=== PATIENT | female | born 1940 | race Caucasian/White ===

== ENCOUNTER 2016-06-07 04:48 | Inpatient (IN) ==
[2016-06-02 14:17] LABS: Appearance,Urine HAZY; Bacteria,Urine 0 /hpf (0); Bilirubin,Urine NEG (NEG); Color,Urine YELLOW; Glucose,Urine (UA) NEGATIVE (NEG); Leukocyte Esterase,Urine 25 /uL (NEG); Nitrate,Urine NEG (NEG); Protein,Urine NEG (NEG); Specific Gravity,Urine 1.009 (1.000-1.035); Urine Blood NEG mg/dL (<0.03); Urine RBC 1 /hpf (0-1); Urine Squamous Epithelial Cell 10 /hpf (0-4); Urine Transitional Epi Cells < 1 /hpf (0-2); Urine WBC 3 /hpf (0-4); Urobilinogen,Urine NEG (NEG)
[2016-06-02 16:05] LABS: Basophils # (Auto) 0 K/mcL (0.0-0.3); Basophils % (Auto) 0.6 % (0.0-2.0); Blood Urea Nitrogen 18 mg/dl (8-23); Eosinophils # (Auto) 0.3 K/mcL (0.0-0.7); Granulocytes % (Auto) 51.9 % (38.0-78.0); Lymphocytes # (Auto) 2.1 K/mcL (1.5-4.8); Lymphocytes % (Auto) 32.2 % (15.5-49.0); Mean Corpuscular HGB Conc 32.1 g/dL (31.0-36.0); Mean Corpuscular Hemoglobin 27.6 pg (26.0-34.0); Monocytes # (Auto) 0.7 K/mcL (0.1-0.9); Monocytes % (Auto) 11.3 % (1.0-9.0); Platelet Count 238 K/mcL (140-440); RBC 5.08 M/mcL (4.00-5.20); Red Cell Distribution Width 14.8 % (11.5-14.5)
[2016-06-07] MEDS ORDERED: ceFAZolin 1 GM VIAL IV SCH (05:00)
[2016-06-07] MEDS ORDERED: ACETAMINOPHEN 500 MG TABLET PO SCH (05:00)
[2016-06-07] MEDS ORDERED: oxyCODONE 10 MG TAB.ER.12H PO SCH (05:00)
[2016-06-07] MEDS ORDERED: CELECOXIB 200 MG CAPSULE PO SCH (05:00)
[2016-06-07] MEDS ORDERED: PREGABALIN 150 MG CAPSULE PO SCH (05:00)
[2016-06-07] MEDS ORDERED: KETOROLAC 30 MG, ROPIVACAINE HCL/PF 49.5 ML, EPINEPHrine 0.5 MG, 0.9 % SODIUM CHLORIDE ... IJ SCH (06:30)
[2016-06-07] MEDS ORDERED: ROPIVACAINE HCL/PF 30 ML VIAL IJ ONE (07:40)
[2016-06-07] MEDS ORDERED: ONDANSETRON 4 MG/2 ML VIAL IV ONE (07:40)
[2016-06-07] MEDS ORDERED: PROPOFOL 200 MG/20 ML VIAL IV ONE (07:40)
[2016-06-07] MEDS ORDERED: GLYCOPYRROLATE 0.2 MG/ML VIAL IV ONE (07:40)
[2016-06-07] MEDS ORDERED: KETAMINE 100 MG/ML ML IV ONE (07:40)
[2016-06-07] MEDS ORDERED: TRANEXAMIC ACID 1,000 MG/10 ML VIAL IV ONE (07:40)
[2016-06-07] MEDS ORDERED: MIDAZOLAM 5 MG/5 ML VIAL IV ONE (07:40)
[2016-06-07] MEDS ORDERED: NALBUPHINE 10 MG/ML AMPUL IV ONE (07:40)
[2016-06-07] MEDS ORDERED: LIDOCAINE HCL/PF 100 MG/5 ML SYRINGE IV ONE (07:40)
[2016-06-07] MEDS ORDERED: HYDROmorphone 2 MG/ML SYRINGE IV ONE (07:40)
[2016-06-07] MEDS ORDERED: GENTAMICIN SULFATE 800 MG/20 ML VIAL IR ONE (08:18)
[2016-06-07] MEDS ORDERED: LABETALOL HCL 20 MG/4 ML SYRINGE IV PRN (08:28)
[2016-06-07] MEDS ORDERED: fentaNYL 100 MCG/2 ML VIAL IV PRN (08:28)
[2016-06-07] MEDS ORDERED: MEPERIDINE 25 MG/ML SYRINGE IV PRN (08:28)
[2016-06-07] MEDS ORDERED: BENZOCAINE/MENTHOL 1 LOZENGE PO PRN ×2 (08:28→10:29)
[2016-06-07] MEDS ORDERED: IPRATROPIUM/ALBUTEROL 3 ML AMPUL.NEB NEB PRN (08:28)
[2016-06-07] MEDS ORDERED: METHOCARBAMOL 1,000 MG/10 ML VIAL IV PRN (08:28)
[2016-06-07] MEDS ORDERED: HYDROmorphone 2 MG/ML SYRINGE IV PRN ×2 (08:28→10:29)
[2016-06-07] MEDS ORDERED: ONDANSETRON 4 MG/2 ML VIAL IV PRN ×2 (08:28→10:29)
[2016-06-07] MEDS ORDERED: LACTATED RINGERS 1,000 ML IV SCH (08:30)
[2016-06-07] MEDS ORDERED: TRANEXAMIC ACID 1,000 MG/10 ML VIAL IV SCH (08:52)
--- NOTE | 2016-06-07 08:52 | Brief Operative Note ---
Date of procedure: 06/07/16 Pre-op diagnosis: left knee djd severe Post-op diagnosis: same Procedure: left tka Grafts/Implants: Yes Anesthesia: GETA Findings: none Complications Description: 06/07/16 08:51 none Surgeon: Bill Hernandez Inorganic Chemical Technician: Ajay Ordaz Estimated blood loss (cc): 15 Tourniquet Time (Minutes): 43 Specimens Removed/Pathology: none sent Condition: stable Disposition: PACU
--- NOTE | 2016-06-07 09:47 | XRay Report ---
CLINICAL INFORMATION: Postsurgical follow-up TECHNIQUE: AP and lateral portable left knee COMPARISON: None. FINDINGS: Status post left total knee arthroplasty. Femoral and tibial complements are in anatomic positions. There is postsurgical soft tissue and intra-articular gas IMPRESSION: Previous left total knee arthroplasty. Interpreted and Authenticated by: Hi Gonzalez 06/07/16
--- NOTE | 2016-06-07 10:22 | Operative Note ---
DATE OF OPERATION: 06/07/2016 PREOPERATIVE DIAGNOSIS: Left knee degenerative arthritis. POSTOPERATIVE DIAGNOSIS: Left knee degenerative arthritis. PROCEDURE: Left total knee arthroplasty. SURGEON: Bill Hernandez MD. WIRE MESH GATE ASSEMBLER: Ajay Ordaz PA-C. ANESTHESIA: General LMA anesthesia. COMPLICATIONS: None. TOTAL TOURNIQUET TIME: 43 minutes. ESTIMATED BLOOD LOSS: 15 mL. IMPLANTS: A Layton implant with size 3 femur and size 3 tibial baseplate with a 9 mm poly. DESCRIPTION OF PROCEDURE: The patient was brought to the operating room and placed supine on the operating table. Once asleep, the patient had the left leg sterilely prepped and draped in the usual sterile fashion after confirming the operative site. Preop antibiotics had been given as well as tranexamic acid. Once done, we then made a midline incision, a mid vastus approach and exposed the joint. Once this had been done, we then placed intramedullary guide holes into the femur and the tibia, cut the distal femur at 5 degrees of valgus and 3 degrees external rotation. We then sized the knee to a size 3 component. Anterior and posterior chamfer cuts were made. Large spurs were removed from the back of the femur. The tibia was then measured from 9 mm below the medial compartment. Once this was done, we then cut with an intramedullary guide jose. This bony fragment was removed. Excess meniscus was removed. We irrigated thoroughly, and we then preserved the posterior cruciate ligament, trialed the size 3 tibial baseplate once it was punched into place with a 9 mm poly, size 3 femur. This seemed to fit very well. The patella tracked better once these components were placed. We then prepared the patella measuring 23 mm in total thickness. This was cut to 13 mm. We implanted a 36 mm patellar button and a small chamfer laterally on the patella. Once this was done, we cemented into place the above-mentioned sizes of components, all of which were well-fixed. Excess cement was removed. We irrigated thoroughly, deflated the tourniquet at 43 minutes and controlled bleeding. The knee was balanced throughout both flexion-extension and mid flexion. Soft tissue release was performed to balance the knee equally with 1 mm play both medially and laterally. The capsule was closed with #2 FiberWire and #1 double-armed Maxon running interlocking stitch. We then closed the skin with 2-0 Vicryl and an adhesive closure. The patient tolerated this well. Sterile bandage was applied. RBH:nathen Job ID: [id number] Doc ID: [id number] Bill Hernandez MD
[2016-06-07] MEDS ORDERED: BISACODYL 10 MG SUPP.RECT PR PRN (10:29)
[2016-06-07] MEDS ORDERED: POLYETHYLENE GLYCOL 3350 17 GM PACKET PO PRN (10:29)
[2016-06-07] MEDS ORDERED: FLEETS ADULT ENEMA PR PRN (10:29)
[2016-06-07] MEDS ORDERED: PROMETHAZINE 25 MG TABLET PO PRN (10:29)
[2016-06-07] MEDS ORDERED: ACETAMINOPHEN 325 MG TABLET PO PRN (10:29)
[2016-06-07] MEDS ORDERED: MAGNESIUM HYDROXIDE 30 ML ORAL.SUSP PO PRN (10:29)
[2016-06-07] MEDS: KETOROLAC 15 MG/ML VIAL IV SCH ×2 (11:01→17:40)
[2016-06-07] MEDS: DOCUSATE SODIUM 100 MG CAPSULE PO SCH ×2 (11:50→21:43)
[2016-06-07] MEDS: 0.45 % SODIUM CHLORIDE 1,000 ML IV SCH ×2 (13:45→16:36)
[2016-06-07] MEDS: HYDROcodone/APAP 10/325MG TABLET PO PRN (13:58)
[2016-06-07] MEDS: 0.9 % SODIUM CHLORIDE 10 ML SYRINGE IV SCH ×2 (14:00→21:47)
[2016-06-07] MEDS: ceFAZolin 1 GM VIAL IV SCH (15:26)
[2016-06-07] MEDS: amLODIPine 5 MG TABLET PO SCH (16:00)
[2016-06-07] MEDS: LISINOPRIL 20 MG TABLET PO SCH (16:01)
[2016-06-07] MEDS: METOPROLOL TARTRATE 50 MG TABLET PO SCH (16:01)
[2016-06-07] MEDS ORDERED: TEMAZEPAM 15 MG CAPSULE PO PRN (21:00)
[2016-06-07] MEDS ORDERED: SENNOSIDES 1 TABLET PO SCH (21:00)
[2016-06-07] MEDS: ASPIRIN 325 MG ENTERIC COATED TABLET PO SCH (21:43)
[2016-06-07] MEDS: ONDANSETRON ODT 4 MG TABLET SL PRN (21:44)
[2016-06-07] MEDS: oxyCODONE 10 MG TAB.ER.12H PO SCH (21:44)
[2016-06-08] MEDS: KETOROLAC 15 MG/ML VIAL IV SCH ×3 (00:51→12:33)
[2016-06-08] MEDS: ceFAZolin 1 GM VIAL IV SCH (00:51)
[2016-06-08] MEDS: 0.45 % SODIUM CHLORIDE 1,000 ML IV SCH ×3 (00:51→10:12)
[2016-06-08] MEDS: ONDANSETRON ODT 4 MG TABLET SL PRN ×2 (04:16→08:38)
[2016-06-08] MEDS: HYDROcodone/APAP 10/325MG TABLET PO PRN ×4 (04:17→12:34)
[2016-06-08] MEDS: amLODIPine 5 MG TABLET PO SCH (04:17)
[2016-06-08] MEDS: LISINOPRIL 20 MG TABLET PO SCH (04:18)
[2016-06-08] MEDS: METOPROLOL TARTRATE 50 MG TABLET PO SCH (04:18)
[2016-06-08] MEDS: 0.9 % SODIUM CHLORIDE 10 ML SYRINGE IV SCH ×2 (04:25→12:36)
[2016-06-08] MEDS ORDERED: LEVOTHYROXINE 100 MCG TABLET PO SCH (07:30)
--- NOTE | 2016-06-08 07:49 | Orthopedic Progress Note ---
Subjective Patient information: Note initiated : 06/08/16 at 7:48 am Service Date, if different from initiated Date: [] Patient: Caity Chung 76 y/o F admitted on 06/07/16 for Left Total Knee Arthroplasty. Chief Complaint: [Pt is stable this morning on post operative day 1 without any significant concerns or complaints. Patients vital signs have remained stable. Patients dressing is dry and exhibits a grossly intact neurovascular and neuromotor exam. Patients 10 point ROS is otherwise negative. ] Objective Vital signs: Vital Signs Temp Pulse Pulse Resp BP BP Pulse Ox 06/08/16 07:42 92 06/08/16 07:25 98.1 F 58 L 14 163/67 91 06/08/16 04:00 97.8 F 65 14 137/77 92 06/08/16 00:00 97.4 F L 62 14 147/65 92 06/07/16 20:00 97.6 F 70 14 135/81 92 06/07/16 14:00 50 L 10 L 95 06/07/16 12:45 68 14 122/74 94 06/07/16 11:45 68 14 150/81 94 06/07/16 11:15 97.5 F L 54 L 14 150/81 96 06/07/16 11:00 59 L 14 129/80 96 06/07/16 10:45 57 L 12 122/76 96 06/07/16 10:30 54 L 12 130/79 96 06/07/16 10:15 61 12 121/78 90 06/07/16 10:05 96 06/07/16 10:00 97.5 F L 62 12 116/76 94 06/07/16 09:44 69 13 131/90 96 06/07/16 09:40 97.5 F L 67 8 L 119/69 96 06/07/16 09:35 68 8 L 134/69 96 06/07/16 09:30 65 8 L 124/73 98 06/07/16 09:27 69 8 L 120/68 97 06/07/16 09:20 62 7 L 110/67 97 06/07/16 09:15 63 8 L 91/51 97 06/07/16 09:10 97.8 F 67 10 L 98/54 96 Intake and Output 06/07/16 06/08/16 06/08/16 21:59 05:59 13:59 Intake Total 2400 / 2400 525 / 525 Output Total 125 / 125 225 / 225 250 / 250 Balance 2275 / 2275 300 / 300 -250 / -250 Intake: IV 1000 / 1000 Sodium Chloride 0.45% 1, 1000 / 1000 000 ml @ 125 mls/hr IV . Q8H DAGOBERTO Rx#:[id number] Oral 1400 / 1400 525 / 525 Output: Void Amount 125 / 125 225 / 225 250 / 250 Other: Meal Lunch Percent of Meal Consumed 100% Weight 203 lb Intake & Output: Intake & Output 06/07/16 06/08/16 06/08/16 21:59 05:59 13:59 Intake Total 2400 / 2400 525 / 525 Output Total 125 / 125 225 / 225 250 / 250 Balance 2275 / 2275 300 / 300 -250 / -250 Weight 203 lb Intake: IV 1000 / 1000 Sodium Chloride 0.45% 1, 1000 / 1000 000 ml @ 125 mls/hr IV . Q8H DAGOBERTO Rx#:[id number] Oral 1400 / 1400 525 / 525 Output: Void Amount 125 / 125 225 / 225 250 / 250 Other: Meal Lunch Percent of Meal Consumed 100% Incision: Yes healing Incision clean and dry: Yes Dressing: Yes clean, Yes dry Weight bearing status: full Neurological exam IM: Yes motor sensory intact, Yes neurovascular intact Extremities exam IM: Yes Foot pink and warm, Yes neurovascular intact - Labs CBC & BMP: 06/08/16 05:00 06/02/16 11:00 Labs: Orthopedic Labs 06/02/16 11:00 PT 13.4 INR 1.0 APTT 34 06/08/16 06/02/16 05:00 11:00 Hgb 14.0 Hct 35.2 L 43.6 Assessment and Plan (1) Hx of total knee arthroplasty Patient has been educated regarding wound care and dressings, follow up recommendations, and medication use. We will f/u with the patient within 2-3 weeks for wound check. Status: Acute
--- NOTE | 2016-06-08 07:51 | Discharge Summary ---
Ortho Discharge - TKA - Patient Instructions Diet: Regular Diet Activity: activity as tolerated, weight bearing as tolerated Total Knee Protocol: For Total Knee: Start ROM DEANGELO with stationary bike or rocking chair. Work on gaining full extension of knee. Posterior dislocation precautions provided. Hip abductor strengthening and gait training instructions provided. Apply Cryocuff as instructed. Dressing Care: May shower in 2 days Patient Education: Total Knee Replacement (DC) Additional Instructions: [facility] [phone] APPOINTMENT: Take photo ID and insurance cards with you to physical therapy. Consider taking pain meds 45 min before physical therapy appointment. Wear comfortable clothes to physical therapy. Consider taking pain meds 45 min before physical therapy appointment. Your orders have been faxed to them. - Problem Maintenance (1) Hx of total knee arthroplasty Status: Acute - Follow Up Plan Follow Up Appointments: Bill Hernandez MD [Physician] - 06/22/16 9:30 am Disposition: Home, Self-Care Prognosis: Good Rehab Potential: Good I certify that the patient requires SNF services: No Overall status at discharge: patient is progressing back to baseline - Orders For Discharge Prescriptions: Aspirin [Ecotrin] 325 mg PO BID #60 tab.ec Docusate Sodium [Colace] 100 mg PO BID #60 capsule HYDROcodone/APAP 10/325MG [Magazine 10/325Mg] 1 - 2 tab PO Q4HP PRN #75 tablet PRN Reason: Pain
[2016-06-08] MEDS: ASPIRIN 325 MG ENTERIC COATED TABLET PO SCH (08:28)
[2016-06-08] MEDS: DOCUSATE SODIUM 100 MG CAPSULE PO SCH (08:28)
[2016-06-08] MEDS: oxyCODONE 10 MG TAB.ER.12H PO SCH (08:29)
== END 2016-06-08 14:15 | disposition home or self-care (01) | DRG 470 ==
LOC: MEDSUR 04:48
PROVIDERS: ADMIT Orthopaedic Surgery; ATTEND Orthopaedic Surgery